=== PATIENT | male | born 1960 | race Caucasian/White ===

== ENCOUNTER 2017-07-23 13:42 | Emergency (ER) | payer OTHER ==
[~2017-07-23] VITALS: Ht 179.1 cm; Wt 76.0 kg
[~2017-07-23 13:42] MED LIST: BUSP10 PO; ENOX120P SQ; LEXA10TA PO; MACR100C PO; OXYC5 PO; QUET400T PO
[2017-07-23 13:45] VITALS: BP 106/71; PULSE 104; RESP 14; TEMP 98.2; O2SAT 96
[2017-07-23 15:55] LABS: AUTOMATED NEUTROPHIL # 3.4 TH/MM3 (1.8-7.7); BASOPHIL % 0.6 % (0.0-2.0); EOSINOPHIL # 0.1 TH/MM3 (0-0.4); EOSINOPHIL % 1.6 % (0.0-4.0); HEMOGLOBIN 13.1 GM/DL (13.0-17.0); LYMPH % 38.7 % (9.0-44.0); LYMPHOCYTE # 2.4 TH/MM3 (1.0-4.8); MEAN CELL VOLUME 122.7 FL (80.0-100.0); MEAN CORPUSCULAR HEMOGLOBIN 42.3 PG (27.0-34.0); MEAN CORPUSCULAR HGB CONC 34.4 % (32.0-36.0); MEAN PLATELET VOLUME 7.6 FL (7.0-11.0); MONO % 4.7 % (0.0-8.0); MONOCYTE # 0.3 TH/MM3 (0-0.9); NEUT % 54.4 % (16.0-70.0); PLATELET COUNT 236 TH/MM3 (150-450); RED CELL DISTRIBUTION WIDTH 15.9 % (11.6-17.2); WHITE BLOOD COUNT 6.2 TH/MM3 (4.0-11.0)
[2017-07-23 16:04] LABS: INTERNATIONAL NORMALIZED RATIO 1.1 RATIO
[2017-07-23 16:12] LABS: BICARBONATE 25.5 MEQ/L (21.0-32.0); BLOOD UREA NITROGEN 4 MG/DL (7-18); CALCIUM 8.7 MG/DL (8.5-10.1); CHLORIDE 98 MEQ/L (98-107); CREATININE 0.63 MG/DL (0.60-1.30); GLOMERULAR FILTRATION RATE 132 ML/MIN (>89); GLUCOSE,RANDOM 89 MG/DL (74-106); SODIUM (NA) 133 MEQ/L (136-145)
[2017-07-23 16:16] LABS: TROPONIN I LESS THAN 0.02 NG/ML (0.02-0.05)
--- NOTE | 2017-07-24 19:03 | EKG ---
Date Performed: 07/23/2017 Time Performed: 15:20:48 PTAGE: 57 years EKG: SINUS TACHYCARDIA POSSIBLE LEFT ATRIAL ENLARGEMENT NONSPECIFIC T-WAVE ABNORMALITY ABNORMAL RHYTHM ECG NO PREVIOUS TRACING DOCTOR: Marquez Thomas Interpretating Date/Time 07/24/2017 19:01:59
== END 2017-07-23 18:31 | disposition left against medical advice (07) ==
LOC: NETRI 13:42
DX: Z53.21 Procedure and treatment not carried out due to patient leaving prior to being seen by health care provider (principal); R94.31 Abnormal electrocardiogram [ECG] [EKG]
CPT/HCPCS: 80048; 82550; 84484; 85025; 85610; 85730; 93005; 99284